=== PATIENT | female | born 1985 | race Caucasian/White ===

== ENCOUNTER 2022-04-21 14:13 | Outpatient (REF) | payer OTHER, SELFPAY ==
--- NOTE | ~2022-04-21 | XR_ITS ---
EXAMINATION: XR SINUSES CLINICAL INFORMATION: Sinusitis COMPARISON: Sinus radiographs 11/16/2013 TECHNIQUE: The sinuses are imaged in 4 views. FINDINGS: There is chronic thickening mucosa left maxillary sinus similar to remote prior exam 2013. The remainder the sinuses appear clear. There are no air-fluid levels. There is no sinus expansion or visible bony thickening or sclerosis. The visualized mastoid air cells are clear. There is corticated ossific fragment adjacent to posterior spinous process C3 similar to prior lateral view 2013. XR/XR sinus min 3V IMPRESSION: -Chronic thickening mucosa left maxillary sinus similar to remote prior exam 2013. -No air-fluid levels.
== END 2022-04-21 14:14 | disposition home or self-care (01) ==
LOC: HO.XRAY 14:13
PROVIDERS: PCP Nurse Practitioner Family; Visit Provider Otolaryngology
DX: J32.9 Chronic sinusitis, unspecified (principal)
CPT/HCPCS: 70220